=== PATIENT | male | born 1960 | race African-American/Black ===

== ENCOUNTER 2017-08-18 19:49 | Inpatient (IN) | payer MEDICAID ==
[~2017-08-18] VITALS: Ht 162.6 cm; Wt 68.0 kg
[~2017-08-18 19:49] MED LIST: ASPI-986 PO; DILT240C92 PO; FURO40TA5 PO; Fluticasone Propionate BOTHNSTRLS; GLIP5TAB12 PO; LOSA25TA3 PO; METF10002 PO; SPIR25TA4 PO
[2017-08-18] MEDS ORDERED: SODIUM CHLORIDE 0.9% 500 ML IV ONE (20:56)
[2017-08-18 22:08] LABS: HEMATOCRIT. 25.4 % (42.0-52.0); HEMOGLOBIN. 8.4 g/dL (14.0-18.0); MEAN CORPUSCULAR HEMOGLOBIN 29.2 pg (28.0-32.0); MEAN CORPUSCULAR VOLUME 88.6 fL (80.0-94.0); MEAN PLATELET VOLUME 6.2 fl (7.4-10.4); PLATELET 571 x1000/uL (130-400); RED BLOOD CELL COUNT 2.87 mill/uL (4.7-6.1); RED CELL DISTRIBUTION WIDTH 17.3 % (11.6-14.6)
[2017-08-18 22:10] LABS: CHLORIDE 99 mEq/L (98-107)
[2017-08-18 22:12] LABS: INR 1.5; PROTHROMBIN TIME 15.9 sec (9.4-11.6)
[2017-08-18 22:13] LABS: CARBON DIOXIDE 27 mEq/L (21-32)
[2017-08-18 22:42] LABS: PLATELET ESTIMATE INCREASED
[2017-08-18 22:52] LABS: CLARITY URINE TURBID (CLEAR); COLOR URINE DARK YELLOW (YELLOW); GLUCOSE URINE NEGATIVE (NEGATIVE); KETONES URINE NEGATIVE (NEGATIVE); LEUKOCYTE ESTERASE URINE 2+ (NEGATIVE); NITRITE URINE NEGATIVE (NEGATIVE); OCCULT BLOOD URINE 2+ (NEGATIVE); PROTEIN URINE 1+ (NEGATIVE); SPECIFIC GRAVITY URINE 1.021 (1.005-1.030)
[2017-08-18] MEDS ORDERED: SODIUM CHLORIDE 0.9% 1000ML BAG (SEPSIS BOLUS) IV ONE (23:30)
[2017-08-19] VITALS (14 sets, daily range): BP systolic 99–125; BP diastolic 50–67
[2017-08-19] MEDS ORDERED: METRONIDAZOLE 500 MG PREMIX 100 ML IV ONE (00:30)
[2017-08-19] MEDS ORDERED: CEFEPIME 1,000 MG in DEXTROSE 5% WATER 50 ML IV ONE (00:30)
[2017-08-19] MEDS ORDERED: VANCOMYCIN 1,250 MG in DEXT 5% WATER 250 ML IV ONE (00:30)
[2017-08-19] MEDS ORDERED: KETOROLAC 15MG/ML VIAL IV ONE (01:45)
[2017-08-19] MEDS ORDERED: FENTANYL CITRATE/PF 50MCG/ML 2ML VIAL IV ONE (01:45)
[2017-08-19] MEDS ORDERED: CARV3.1242 PO (04:54)
[2017-08-19] MEDS ORDERED: LANTUS SQ (04:54)
[2017-08-19] MEDS ORDERED: FERR220S6 PO (04:54)
[2017-08-19] MEDS ORDERED: ERGO500013 PO (04:54)
[2017-08-19] MEDS ORDERED: ACET-2853 PO (04:54)
[2017-08-19] MEDS ORDERED: DIGO125T82 PO (04:54)
[2017-08-19] MEDS ORDERED: AMIO100T4 PO (04:54)
[2017-08-19] MEDS ORDERED: LOPE2TAB26 MT (04:54)
[2017-08-19] MEDS ORDERED: INSLIS SUBCUT (04:54)
[2017-08-19] MEDS ORDERED: DOCU-138 PO (04:54)
[2017-08-19] MEDS ORDERED: TAMS0.4C31 PO (04:55)
[2017-08-19] MEDS ORDERED: WARF5TAB73 PO (04:55)
[2017-08-19] MEDS ORDERED: MULT-1146 PO (04:55)
[2017-08-19] MEDS ORDERED: POLY17PO3 PO (04:55)
[2017-08-19] MEDS ORDERED: HYDR-519 PO (04:55)
[2017-08-19] MEDS ORDERED: DEXTROSE 50% WATER 50ML SYRINGE IV PRN (05:45)
[2017-08-19] MEDS ORDERED: SODIUM CHLORIDE 0.9% 10ML VIAL ONE (06:00)
[2017-08-19] MEDS ORDERED: IOHEXOL-300 100 ML BOTTLE ONE (06:00)
[2017-08-19] MEDS: DEXT 5%/0.45% NACL 1000ML 1,000 ML IV SCH ×2 (06:14→22:57)
[2017-08-19] MEDS: BLOOD SUGAR DIAGNOSTIC STRIP TEST SCH ×4 (07:11→21:27)
[2017-08-19 07:12] LABS: MEAN CORPUSCULAR HEMOGLOBIN 29.3 pg (28.0-32.0); MEAN CORPUSCULAR VOLUME 88.7 fL (80.0-94.0); MEAN PLATELET VOLUME 6.1 fl (7.4-10.4); PLATELET 458 x1000/uL (130-400); RED BLOOD CELL COUNT 2.34 mill/uL (4.7-6.1); RED CELL DISTRIBUTION WIDTH 16.7 % (11.6-14.6)
[2017-08-19 07:25] LABS: HEMATOCRIT. 20.8 % (42.0-52.0); HEMOGLOBIN. 6.9 g/dL (14.0-18.0)
[2017-08-19 07:58] LABS: CARBON DIOXIDE 24 mEq/L (21-32); CHLORIDE 104 mEq/L (98-107)
[2017-08-19] MEDS: LEVOFLOXACIN 500MG PREMIX 100 ML IV SCH (08:00)
[2017-08-19] MEDS: INSULIN LISPRO 100 UNITS/ML SUBCUT SCH ×4 (08:10→21:00)
[2017-08-19] MEDS: PANTOPRAZOLE SODIUM 40 MG/VIAL IV SCH (08:46)
[2017-08-19] MEDS ORDERED: METRONIDAZOLE 500 MG PREMIX 100 ML IV SCH (10:00)
[2017-08-19] MEDS: HYDROMORPHONE HCL/PF 2MG/ML CPJ IV PRN ×2 (13:27→19:58)
[2017-08-19 21:18] LABS: PLATELET ESTIMATE INCREASED
[2017-08-19] MEDS ORDERED: ACETAMINOPHEN 325MG TABLET PO PRN (22:00)
[2017-08-19] MEDS: METRONIDAZOLE 500 MG PREMIX 100 ML IV SCH (22:50)
[2017-08-20] VITALS (7 sets, daily range): BP systolic 106–138; BP diastolic 56–68
[2017-08-20] MEDS: HYDROMORPHONE HCL/PF 2MG/ML CPJ IV PRN ×4 (02:57→18:27)
[2017-08-20] MEDS: METRONIDAZOLE 500 MG PREMIX 100 ML IV SCH ×2 (05:11→13:32)
[2017-08-20] MEDS: BLOOD SUGAR DIAGNOSTIC STRIP TEST SCH ×3 (06:57→18:08)
[2017-08-20] MEDS: LEVOFLOXACIN 500MG PREMIX 100 ML IV SCH (08:00)
[2017-08-20] MEDS: PANTOPRAZOLE SODIUM 40 MG/VIAL IV SCH (08:09)
[2017-08-20] MEDS: INSULIN LISPRO 100 UNITS/ML SUBCUT SCH ×4 (08:10→18:09)
[2017-08-20] MEDS: DEXT 5%/0.45% NACL 1000ML 1,000 ML IV SCH (08:25)
[2017-08-20 12:01] LABS: BASOPHILS % 0.2 % (0.0-2.0); EOSINOPHILS % 0.7 % (0.0-5.0); HEMATOCRIT. 27.4 % (42.0-52.0); HEMOGLOBIN. 9.2 g/dL (14.0-18.0); LYMPHOCYTES % 8.4 % (20.0-50.0); MEAN CORPUSCULAR HEMOGLOBIN 29.5 pg (28.0-32.0); MEAN CORPUSCULAR VOLUME 87.5 fL (80.0-94.0); MONOCYTES % 12.4 % (2.0-8.0); NEUTROPHILS % 78.3 % (40.0-76.0); PLATELET 447 x1000/uL (130-400); RED BLOOD CELL COUNT 3.13 mill/uL (4.7-6.1); RED CELL DISTRIBUTION WIDTH 15.9 % (11.6-14.6)
== END 2017-08-20 20:20 | disposition home or self-care (01) | DRG 466 ==
LOC: ER 19:49 → 7WST 08-19 01:44 → ENRESERV 08-19 02:02 → 7WST 08-19 05:20
PROVIDERS: ADMIT Hospitalist; ATTEND Hospitalist
PROC: 30233N1 Transfusion of Nonautologous Red Blood Cells into Peripheral Vein, Percutaneous Approach (ICD-10-PCS; principal; 2017-08-19)
DX: T83.512A Infection and inflammatory reaction due to nephrostomy catheter, initial encounter (principal); E43 Unspecified severe protein-calorie malnutrition; E11.22 Type 2 diabetes mellitus with diabetic chronic kidney disease; I13.0 Hypertensive heart and chronic kidney disease with heart failure and stage 1 through stage 4 chronic kidney disease, or unspecified chronic kidney disease; R65.10 Systemic inflammatory response syndrome (SIRS) of non-infectious origin without acute organ dysfunction; I50.9 Heart failure, unspecified; I48.91 Unspecified atrial fibrillation; L02.211 Cutaneous abscess of abdominal wall; D50.0 Iron deficiency anemia secondary to blood loss (chronic); N18.9 Chronic kidney disease, unspecified; N39.0 Urinary tract infection, site not specified; N40.0 Benign prostatic hyperplasia without lower urinary tract symptoms; Z86.718 Personal history of other venous thrombosis and embolism; Z88.0 Allergy status to penicillin
CPT/HCPCS: 36415; 74177; 80053; 81001; 82962; 83605; 83690; 85025; 85610; 86850; 86900; 86920; 87040; 96365; 96367; 96372; 99285; A4216; C9113; J0692; J1170; J1815; J1885; J1956; J3010; J3370; J3490; J7030; J7050; J7060; P9016; Q9967